=== PATIENT | female | born 1950 | race Caucasian/White ===

== ENCOUNTER → 2020-10-08 08:22 | Outpatient (CLI) | payer OTHER, SELFPAY ==
[2020-10-08 19:04] LABS: SARS-CoV-2 RNA PCR Negative
== END ==
PROVIDERS: PCP Internal Medicine; Visit Provider Nurse Practitioner
DX: R50.9 Fever, unspecified (principal); Z20.822 Contact with and (suspected) exposure to COVID-19
CPT/HCPCS: C9803; U0003; U0005

== ENCOUNTER 2020-10-10 15:02 | Outpatient (CLI) | payer OTHER, SELFPAY ==
--- NOTE | ~2020-10-10 | XR_ITS ---
EXAMINATION: XR knee RT 3V DATE: 10/10/2020 15:21 INDICATION: Right knee injury and pain. TECHNIQUE: 3 views of right knee were obtained. COMPARISON: None. FINDINGS: Bone alignment is normal. No fracture. There is mild tricompartmental osteoarthritis. There is a small knee joint effusion. IMPRESSION: 1. Mild right knee osteoarthritis. 2. Small right knee joint effusion. Reviewed, dictated and finalized at location B.
== END 2020-10-10 15:03 | disposition home or self-care (01) ==
PROVIDERS: PCP Internal Medicine; Visit Provider Nurse Practitioner
DX: M17.11 Unilateral primary osteoarthritis, right knee (principal); M25.461 Effusion, right knee
CPT/HCPCS: 73562

== ENCOUNTER → 2021-10-29 08:46 | Outpatient (CLI) | payer OTHER, SELFPAY ==
[2021-10-29 11:48] LABS: SARS-CoV-2 RNA PCR Negative
== END ==
PROVIDERS: PCP Internal Medicine; Visit Provider Nurse Practitioner
DX: Z20.822 Contact with and (suspected) exposure to COVID-19 (principal)
CPT/HCPCS: C9803; U0003; U0005

== ENCOUNTER 2021-11-21 10:32 | Outpatient (CLI) | payer OTHER, SELFPAY ==
--- NOTE | ~2021-11-21 | US_ITS ---
EXAMINATION: US aorta DATE: 11/21/2021 11:08 INDICATION: Abdominal aortic aneurysm without rupture TECHNIQUE: Grayscale, color Doppler, and pulsed Doppler images of the aorta and common iliac arteries were obtained. COMPARISON: None. FINDINGS: The proximal aorta measures 1.7 cm in AP diameter. The mid aorta measures 1.7 cm in AP diameter. The distal aorta measures 1.8 cm AP diameter. There is scattered atherosclerotic plaque along the abdomin al aorta without hemodynamically significant stenosis. The right common iliac artery measures 0.8 cm. The left common iliac artery measures 1.0 cm. IMPRESSION: 1. Nonhemodynamically significant atherosclerotic plaque along the normal caliber abdominal aorta. Reviewed, dictated and finalized at location B. IMPRESSION: 1. Nonhemodynamically significant atherosclerotic plaque along the normal calib er abdominal aorta.
== END 2021-11-21 10:33 | disposition home or self-care (01) ==
LOC: ANHIMG 10:33
PROVIDERS: PCP Internal Medicine; Visit Provider Nurse Practitioner
DX: I71.4 Abdominal aortic aneurysm, without rupture (principal)
CPT/HCPCS: 76775

== ENCOUNTER 2022-07-14 13:02 | Outpatient (RCR) | payer OTHER, SELFPAY ==
[2022-07-14 14:30] VITALS: BMI 28.3
== END 2022-09-29 14:36 | disposition home or self-care (01) ==
LOC: ANHWOC 13:02
PROVIDERS: PCP Internal Medicine; Visit Provider Podiatrist Foot & Ankle Surgery
DX: E11.621 Type 2 diabetes mellitus with foot ulcer (principal); L97.519 Non-pressure chronic ulcer of other part of right foot with unspecified severity
CPT/HCPCS: 99214; A9270; G0463

== ENCOUNTER 2022-09-18 12:18 | Outpatient (CLI) | payer OTHER, SELFPAY ==
--- NOTE | ~2022-09-18 | US_ITS ---
EXAMINATION: US carotid duplex BI DATE: 09/18/2022 13:57 INDICATION: Occlusion and stenosis of unspecified carotid artery. TECHNIQUE: Grayscale, color Doppler, and pulsed Doppler images of the cervical carotid arteries were obtained. The degree of vessel stenosis is placed in one of the following categories: normal, <50%, 5 0-69%, >=70% but less than near-occlusion, near-occlusion, or total occlusion. Note that percent sten osis relative to normal distal artery lumen diameter is indirectly measured from velocity measurement s as described by Derick, et al. Radiology 2003; [id number]. COMPARISON: Ultrasound 05/27/2018 FINDINGS: RIGHT: The right common carotid artery (CCA) peak systolic velocity (PSV) is 109 cm/s. The right internal ca rotid artery (ICA) PSV is 115 cm/s. The right ICA end-diastolic velocity (EDV) is 22 cm/s. The right ICA/CCA PSV ratio is 1.1. Grayscale and color Doppler images yield an estimate of <50% diameter reduc tion from plaque in the ICA. There is antegrade flow in the right vertebral artery. LEFT: The left CCA PSV is 131 cm/s. The left ICA PSV is 97 cm/s. The left ICA EDV is 21 cm/s. The left ICA/ CCA PSV ratio is 0.7. Grayscale and color Doppler images yield an estimate of <50% diameter reduction from plaque in the ICA. There is antegrade flow in the left vertebral artery. IMPRESSION: 1. <50% stenosis in the right internal carotid artery. 2. <50% stenosis in the left internal carotid artery. Reviewed, dictated and finalized at location A.
== END 2022-09-18 12:19 | disposition home or self-care (01) ==
PROVIDERS: PCP Emergency Medicine; Visit Provider Emergency Medicine
DX: I65.23 Occlusion and stenosis of bilateral carotid arteries (principal)
CPT/HCPCS: 93880

== ENCOUNTER 2023-04-29 16:16 | Outpatient (CLI) | payer OTHER, SELFPAY ==
--- NOTE | ~2023-04-29 | XR_ITS ---
EXAMINATION: XR chest 2V DATE: 04/29/2023 16:40 INDICATION: Chest pain, unspecified. Cough. TECHNIQUE: Frontal and lateral views of the chest were obtained. COMPARISON: None. FINDINGS: There is mild atelectasis versus scarring in the lower lung zones. No pleural effusion or p neumothorax. The heart size is normal. IMPRESSION: 1. Mild atelectasis versus scarring in the lower lung zones. Reviewed, dictated and finalized at location E. [employer]
== END 2023-04-29 16:17 | disposition home or self-care (01) ==
PROVIDERS: PCP Emergency Medicine; Visit Provider Emergency Medicine
DX: R07.9 Chest pain, unspecified (principal); R05.9 Cough, unspecified
CPT/HCPCS: 71046

== ENCOUNTER 2023-06-10 13:25 | Outpatient (CLI) | payer OTHER, SELFPAY | END 2023-06-10 13:26 | disposition home or self-care (01) | LOC: ANHBWCAUD 13:26 | PROVIDERS: PCP Emergency Medicine; Visit Provider Otolaryngology | DX: H90.41 Sensorineural hearing loss, unilateral, right ear, with unrestricted hearing on the contralateral side (principal); H90.72 Mixed conductive and sensorineural hearing loss, unilateral, left ear, with unrestricted hearing on the contralateral side | CPT/HCPCS: 92557; 92567 ==

== ENCOUNTER 2023-11-18 13:03 | Outpatient (CLI) | payer OTHER, SELFPAY ==
--- NOTE | ~2023-11-18 | US_ITS ---
EXAMINATION: US carotid duplex BI DATE: 11/18/2023 14:17 INDICATION: Carotid stenosis TECHNIQUE: Grayscale, color Doppler, and pulsed Doppler images of the cervical carotid arteries were obtained. The degree of vessel stenosis is placed in one of the following categories: normal, <50%, 5 0-69%, >=70% but less than near-occlusion, near-occlusion, or total occlusion. Note that percent sten osis relative to normal distal artery lumen diameter is indirectly measured from velocity measurement s as described by Derick, et al. Radiology 2003; [id number]. Notes: Normal: Peak systolic velocity <125 centimeters/sec and no plaque <50%. Peak systolic velocity <125 ( EDV <40; ICA/CCA PSV ratio <2.0; used these factors only a tandem lesions or low cardiac output or co ntralateral disease) 50-69 %: PSV 125-230 (EDV 40-100; ratio 2-4) >= 70% but less than near occlusion: PSV greater than 230 (EDV > 100; ratio> 4.0) Near Occlusion: PSV that is variable; markedly narrowed lumen Occlusion: Absent flow on color/spectral Doppler and no lumen on lima scale. COMPARISON: None. FINDINGS: RIGHT: The right common carotid artery (CCA) peak systolic velocity (PSV) is 103 cm/s. The right internal ca rotid artery (ICA) PSV is 152 cm/s. The right ICA end-diastolic velocity (EDV) is 16 cm/s. The right ICA/CCA PSV ratio is 1.5. The external carotid artery (ECA) PSV is 283 cm/s. There is antegrade flow in the right vertebral artery. LEFT: The left CCA PSV is 127 cm/s. The left ICA PSV is 109 cm/s. The left ICA EDV is 11 cm/s. The left ICA /CCA PSV ratio is 0.9. The ECA PSV is 158 cm/s. There is antegrade flow in the left vertebral artery . IMPRESSION: 1. 50-69% stenosis in the right internal carotid artery by sonographic criteria. 2. Less than 50% stenosis in the left internal carotid artery by sonographic criteria. Reviewed, dictated and finalized at location B. IMPRESSION: 1. 50-69% stenosis in the right internal carotid artery by sonographic criteria . 2. Less than 50% stenosis in the left internal carotid artery by sonographic cr iteria.
== END 2023-11-18 13:04 | disposition home or self-care (01) ==
PROVIDERS: PCP Emergency Medicine; Visit Provider Emergency Medicine
DX: I65.23 Occlusion and stenosis of bilateral carotid arteries (principal)
CPT/HCPCS: 93880